=== PATIENT | male | born 1955 | race Caucasian/White ===

== ENCOUNTER 2024-06-21 09:11 | Day surgery (SDC) | payer OTHER ==
[~2024-06-21] VITALS: Ht 170.2 cm; Wt 90.7 kg
[2024-06-21] MEDS ORDERED: fentaNYL citrate 0.05 MG/ML VIAL ONE (10:22)
[2024-06-21] MEDS ORDERED: MIDAZOLAM 5 MG/5 ML VIAL ONE (10:23)
[2024-06-21] MEDS: MIDAZOLAM 2 MG/2 ML VIAL IVP ONE (10:42)
== END 2024-06-21 11:55 | disposition home or self-care (01) ==
LOC: MDS 09:11 → MMU 09:14 → MDS 11:55
PROVIDERS: ATTEND Internal Medicine Gastroenterology
DX: D64.9 Anemia, unspecified (principal); D13.1 Benign neoplasm of stomach; D69.59 Other secondary thrombocytopenia; I10 Essential (primary) hypertension; E11.9 Type 2 diabetes mellitus without complications; Z79.84 Long term (current) use of oral hypoglycemic drugs
CPT/HCPCS: 43251; 82948; J2250; J3010